=== PATIENT | female | born 1990 | race Caucasian/White ===

== ENCOUNTER 2017-08-24 10:01 | Day surgery (SDC) | payer MEDICAID ==
[~2017-08-24 10:01] MED LIST: Lactated Ringers 1,000 ML IV SCH; Lidocaine 1%/Sod Bicarbonate in NS 8.4% 1 ML Syringe IDERM PRN; Sodium Chloride 0.9% 10 ML Syringe FLUSH PRN
[2017-08-24] MEDS ORDERED: Lidocaine 1% 6 ML ONE (10:19)
[2017-08-24] MEDS ORDERED: ceFAZolin 1 GM Vial ONE (10:19)
[2017-08-24] MEDS ORDERED: Ketorolac 30 MG/ML SDV ONE (10:19)
[2017-08-24] MEDS ORDERED: Dexamethasone 4 MG/ML SDV ONE (10:19)
[2017-08-24] MEDS ORDERED: Propofol 200 MG/20 ML SDV ONE ×2 (10:19→11:54)
[2017-08-24] MEDS ORDERED: Lactated Ringers 1,000 ML ONE (10:19)
[2017-08-24] MEDS ORDERED: Ondansetron 4 MG/2 ML SDV ONE (10:19)
[2017-08-24] MEDS ORDERED: fentaNYL 100 MCG/2 ML SDV ONE ×2 (10:20→11:50)
[2017-08-24] MEDS ORDERED: Midazolam 1 MG/ML 2 ML SDV ONE (10:20)
[2017-08-24] MEDS ORDERED: Lidocaine 1% with EPINEPHrine 1:100,000 20 ML MDV ONE (10:27)
[2017-08-24] MEDS ORDERED: Bupivacaine 0.5%/EPINEPHrine 1:200,000 50 ML MDV ONE (10:27)
--- NOTE | 2017-08-24 10:53 | PCM.PREANE ---
Preanesthetic Assessment - Procedure Proposed Procedure: Open umbililcal hernia repair with mesh - Anesthesia/Transfusion/Family Hx Anesthesia History: Prior Anesthesia Without Reaction Family History of Anesthesia Reaction: No Transfusion History: No Prior Transfusion(s) Intubation History: Unknown - Review of Systems General: No Symptoms Pulmonary: No Symptoms Cardiovascular: No Symptoms Gastrointestinal: No Symptoms Neurological: No Symptoms Other: Reports: None - Physical Assessment NPO Status Date: 08/23/17 NPO Status Time: 22:00 Pulse: 72 O2 Sat by Pulse Oximetry: 98 Respiratory Rate: 16 Blood Pressure: 131/70 Temperature: 36.8 C Height: 1.57 m Weight: 84 kg ASA Class: 2 Mental Status: Alert & Oriented x3 Airway Class: Mallampati = 2 Dentition: Reports: Normal Dentition Thyro-Mental Finger Breadths: 3 Mouth Opening Finger Breadths: 3 ROM/Head Extension: Full Lungs: Clear to Auscultation, Normal Respiratory Effort Cardiovascular: Regular Rate, Regular Rhythm - Allergies Allergies/Adverse Reactions: Allergies Allergy/AdvReac Type Severity Reaction Status Date / Time No Known Allergies Allergy Verified 08/23/17 12:41 - Blood Blood Available: No Product(s) Available: None - Anesthesia Plan Pre-Op Medication Ordered: None - Acknowledgements Anesthesia Type Planned: General Anesthesia Pt an Appropriate Candidate for the Planned Anesthesia: Yes Alternatives and Risks of Anesthesia Discussed w Pt/Guardian: Yes Pt/Guardian Understands and Agrees with Anesthesia Plan: Yes PreAnesthesia Questionnaire HEENT History: Reports: Impaired Vision, Other (See Below) Other HEENT History: wears glasses, history of allergic reaction Cardiovascular History: Reports: Hypertension Respiratory History: Reports: None Gastrointestinal History: Reports: Other (See Below) Other Gastrointestinal History: umbilical hernia Genitourinary History: Reports: None 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 , Other (See Below) Other OB/BYN History: missed menses Musculoskeletal History: Reports: Other (See Below) Other Musculoskeletal History: knee pain Neurological History: Reports: None Psychiatric History: Reports: Other (See Below) Other Psychiatric History: fatigue Endocrine/Metabolic History: Reports: None Hematologic History: Reports: None Immunologic History: Reports: None Oncologic (Cancer) History: Reports: None Dermatologic History: Reports: None - Past Surgical History Head Surgeries/Procedures: Reports: None Cardiovascular Surgical History: Reports: None Respiratory Surgical History: Reports: None GI Surgical History: Reports: None Female Surgical History: Reports: None Male Surgical History: Reports: None Endocrine Surgical History: Reports: None Neurological Surgical History: Reports: None Musculoskeletal Surgical History: Reports: None Oncologic Surgical History: Reports: None Dermatological Surgical History: Reports: None - SUBSTANCE USE Smoking Status *Q: Current Some Day Smoker Tobacco Use Within Last Twelve Months: Cigarettes Second Hand Smoke Exposure: No Recreational Drug Use History: No - HOME MEDS Home Medications: Home Meds . [No Known Home Meds] 08/23/17 [History] - CURRENT (IN HOUSE) MEDS Current Meds: Current Medications Lactated Ringer's (Ringers, Lactated) 1,000 mls @ 125 mls/hr IV ASDIRECTED MARIAM Stop: 08/24/17 23:00 Lidocaine/Sodium Bicarbonate (Buffered Lidocaine 1% In Ns 8.4%) 0.25 ml IDERM ONETIME PRN PRN Reason: Prior to IV Start Stop: 08/24/17 18:00 Sodium Chloride (Saline Flush) 10 ml FLUSH ASDIRECTED PRN PRN Reason: Keep Vein Open Stop: 08/24/17 18:00 Discontinued Medications Bupivacaine HCl/Epinephrine Bitart (Marcaine 0.5%/Epinephrine 1:200,000) Confirm Administered Dose 50 ml .ROUTE .STK-MED ONE Stop: 08/24/17 10:28 Cefazolin Sodium (Ancef) Confirm Administered Dose 2 gm .ROUTE .STK-MED ONE Stop: 08/24/17 10:20 Dexamethasone (Dexamethasone) Confirm Administered Dose 8 mg .ROUTE .STK-MED ONE Stop: 08/24/17 10:20 Fentanyl (Sublimaze) Confirm Administered Dose 100 mcg .ROUTE .STK-MED ONE Stop: 08/24/17 10:21 Lidocaine HCl (Xylocaine-Mpf 1%) Confirm Administered Dose 6 mls @ as directed .ROUTE .STK-MED ONE Stop: 08/24/17 10:20 Lactated Ringer's (Ringers, Lactated) Confirm Administered Dose 1,000 mls @ as directed .ROUTE .STK-MED ONE Stop: 08/24/17 10:20 Ketorolac Tromethamine (Toradol) Confirm Administered Dose 30 mg .ROUTE .STK- MED ONE Stop: 08/24/17 10:20 Lidocaine/Epinephrine (Xylocaine 1% With Epinephrine 1:100,000) Confirm Administered Dose 20 ml .ROUTE .STK-MED ONE Stop: 08/24/17 10:28 Midazolam HCl (Versed 1 Mg/Ml) Confirm Administered Dose 2 mg .ROUTE .STK-MED ONE Stop: 08/24/17 10:21 Ondansetron HCl (Zofran) Confirm Administered Dose 4 mg .ROUTE .STK-MED ONE Stop: 08/24/17 10:20 Propofol (Diprivan 20 Ml) Confirm Administered Dose 200 mg .ROUTE .STK-MED ONE Stop: 08/24/17 10:20
[2017-08-24] MEDS ORDERED: Ketamine 500 mg/10 ML MDV ONE (11:39)
--- NOTE | 2017-08-24 12:15 | PCM.OPNOTE ---
- General Post-Op/Procedure Note Date of Surgery/Procedure: 08/24/17 Operative Procedure(s): Open umbilical hernia repair with primary closure using Ethibond Findings: 1-1/2 cm fascial defect containing herniated omental fat with a mature hernia sac Pre Op Diagnosis: Incarcerated umbilical hernia Post-Op Diagnosis: Same Anesthesia Technique: Local, MAC, Moderate Sedation Primary Surgeon: Ha Boone Pathology: None Complications: None Condition: Good Free Text/Narrative:: After adequate IV sedation and analgesia was obtained the patient's abdomen was prepped and draped sterilely for an open umbilical hernia repair. Local analgesia was given in the periumbilical region. A 15 blade was used to make a curvilinear incision through the skin into the subcutaneous tissues. The hernia sac was dissected away from the umbilical skin. It was then dissected sharply away from surrounding subcutaneous tissues down to the fascia. I opened a thickened sac and excised it. I reduced the omental fat through a 1.5 cm fascial defect. I closed this defect with 3 interrupted 0 Ethibond sutures. The umbilical skin was attached to the midline with a interrupted [id number]-[id number] Vicryl. I closed the subcuticular space with interrupted Vicryl. The skin was closed with 4-0 subcuticular Vicryl. Steri-Strips and gauze were used for the dressing. There were no complications.
--- NOTE | 2017-08-24 12:22 | PCM48HPAN ---
Post Anesthesia Note - EVALUATION WITHIN 48HRS OF ANESTHETIC Vital Signs in Normal Range: Yes Patient Participated in Evaluation: Yes Respiratory Function Stable: Yes Airway Patent: Yes Cardiovascular Function Stable: Yes Hydration Status Stable: Yes Pain Control Satisfactory: Yes Nausea and Vomiting Control Satisfactory: Yes Mental Status Recovered: Yes
[2017-08-24] MEDS ORDERED: Acetaminophen/Codeine 300-30 MG Tab PO PRN (12:43)
== END 2017-08-24 13:45 | disposition home or self-care (01) ==
LOC: JD.SDS 10:01
PROVIDERS: ATTEND Surgery
DX: K42.0 Umbilical hernia with obstruction, without gangrene (principal)
CPT/HCPCS: 49587; 81025; A9270; J0690; J1100; J1885; J2250; J2405; J3010; J7120; J2704

== ENCOUNTER 2018-08-30 21:14 | Emergency (ER) | payer OTHER, MEDICAID ==
[2018-08-30] MEDS ORDERED: Ibuprofen 600 MG Tab PO ONE (21:54)
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
--- NOTE | 2018-08-31 07:17 | CT ---
CT cervical spine Technique: Multiple axial sections were obtained from above C1 inferiorly to the bottom of T2. Reconstructed sagittal and coronal images were reviewed. Comparison: No prior cervical spine imaging. Findings: Vertebral body heights and disc spaces are maintained. Vertebral bodies and posterior arches are intact. No fracture is seen. Slight kyphosis is seen on the reconstructed sagittal views which is most likely positional. No bony central or bony neural foraminal stenosis is seen. Impression: 1. Nothing acute is seen on CT study of the cervical spine. Diagnostic code #1 I agree with preliminary report from [facility], finalized on 08/30/18, 11:16 PM Central Time
== END 2018-08-30 22:40 | disposition home or self-care (01) ==
LOC: JD.ED 21:14
DX: S16.1XXA Strain of muscle, fascia and tendon at neck level, initial encounter (principal); E78.00 Pure hypercholesterolemia, unspecified; I10 Essential (primary) hypertension; Z87.891 Personal history of nicotine dependence; V53.5XXA Driver of pick-up truck or van injured in collision with car, pick-up truck or van in traffic accident, initial encounter
CPT/HCPCS: 72125; 99284; A9270; 99282

== ENCOUNTER 2020-06-30 09:09 | Emergency (ER) | payer SELFPAY ==
--- NOTE | 2020-06-30 10:09 | CT ---
Head CT Technique: Multiple axial sections through the brain were obtained. Comparison: No prior intracranial imaging is available. Reconstructed coronal and sagittal images were obtained. Findings: Ventricles along with basal cisterns and sulci over the convexities are within normal limits. No abnormal parenchymal densities are seen. No evidence of intracranial hemorrhage. No midline shift or mass-effect is seen. Visualized mastoid sinuses and paranasal sinuses show nothing acute. No acute calvarial finding is appreciated. Impression: 1. Nothing acute is appreciated on noncontrast head CT exam. Diagnostic code #1
--- NOTE | 2020-06-30 10:10 | CT ---
Cervical spine Technique: Multiple axial sections were obtained from above C1 inferiorly to the mid T2 vertebral body. Reconstructed sagittal and coronal images were obtained. Comparison: Prior CT cervical spine study of 08/30/18. Findings: Vertebral bodies and posterior arches are intact. No fracture is seen. No bony central or bony neural foraminal stenosis is appreciated. Cervical spine is held in flexion. Impression: 1. Cervical spine is held in flexion. This is most likely due to position. Spasm is also within the differential. 2. No acute bony abnormality is appreciated. Diagnostic code #2
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
== END 2020-06-30 10:47 | disposition home or self-care (01) ==
LOC: JD.ED 09:09
DX: S09.90XA Unspecified injury of head, initial encounter (principal); S16.1XXA Strain of muscle, fascia and tendon at neck level, initial encounter; S00.83XA Contusion of other part of head, initial encounter; E66.9 Obesity, unspecified; I10 Essential (primary) hypertension; W00.0XXA Fall on same level due to ice and snow, initial encounter
CPT/HCPCS: 70450; 70450-26; 72125; 72125-26; 99283-25

== ENCOUNTER 2020-08-30 15:03 | Emergency (ER) | payer SELFPAY ==
[2020-08-30] MEDS ORDERED: cefTRIAXone 250 MG, Lidocaine 1% 0.9 ML IM ONE ×2 (16:15)
--- NOTE | 2020-08-30 16:21 | EDM.PDOC ---
ED HPI GENERAL MEDICAL PROBLEM - General Chief Complaint: [employer] Problem Stated Complaint: FB IN VAGINA NEEDS CHECKED Time Seen by Provider: 08/30/20 15:17 Source of Information: Reports: Patient, RN Notes Reviewed History Limitations: Reports: No Limitations - History of Present Illness INITIAL COMMENTS - FREE TEXT/NARRATIVE: Patient is a 30-year-old female who presents to the ED for evaluation of a retained foreign body in her vagina. Patient notes that she has a history of PCOS, and does get regular menses, and been dealing with this last menses for about 2 weeks she has been getting some increased blood clots, that is becoming concerning for her. She states that roughly 4 days ago on Tuesday, she had a tampon in and she thought she had taken it out, and today she noticed an odor and some vaginal discharge she did not have prior to these last few days. She has been utilizing tampons since then, took out her tampon for today's purposes, and then discovered that she had that second retained tampon in from last Tuesday. She notes that since then, she had some pelvic discomfort, and tenderness suprapubically. She is not had any fevers or chills, nausea/v omiting/diarrhea. 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 She did not take any pain meds for this at this time. Pelvic Pain Score (Numeric/FACES): 7 - Related Data Allergies Allergy/AdvReac Type Severity Reaction Status Date / Time No Known Allergies Allergy Verified 08/30/20 15:31 Home Meds: Home Meds Hydrocodone/Acetaminophen [Hydrocodone-Acetamin 5-325 mg] 1 - 2 each PO Q6HR PRN #10 tablet 06/30/20 [Rx] Doxycycline [Vibramycin] 100 mg PO BID 14 Days #28 tab 08/30/20 [Rx] medroxyPROGESTERone [Provera] 10 mg PO DAILY #10 tab 08/30/20 [Rx] Past Medical History HEENT History: Reports: Impaired Vision Other HEENT History: wears glasses Cardiovascular History: Reports: Hypertension Gastrointestinal History: Reports: Other (See Below) Other Gastrointestinal History: umbilical hernia [employer] History: Reports: Polycystic Ovaries, , Spontaneous Other [employer] WORKER History: missed menses Musculoskeletal History: Reports: Other (See Below) Other Musculoskeletal History: knee pain Endocrine/Metabolic History: Reports: Obesity/BMI 30+ - Past Surgical History GI Surgical History: Reports: Hernia, Abdominal Female Surgical History: Reports: D&C Social & Family History - Family History Family Medical History: No Pertinent Family History Cardiac: Reports: High Cholesterol, Hypertension Endocrine/Metabolic: Reports: Diabetes, type II, Hypothyroidism - Tobacco Use Tobacco Use Status *Q: Never Tobacco User - Caffeine Use Caffeine Use: Reports: None - Recreational Drug Use Recreational Drug Use: No - Living Situation & Occupation Living situation: Reports: , with Family (2 daughters) Occupation: Employed ([employer]) ED ROS GENERAL - Review of Systems Review Of Systems: Comprehensive ROS is negative, except as noted in HPI. ED EXAM, RENAL/ - Physical Exam Exam: See Below Exam Limited By: No Limitations General Appearance: Alert, WD/WN, No Apparent Distress Respiratory/Chest: No Respiratory Distress, Lungs Clear, Normal Breath Sounds, No Accessory Muscle Use, Chest Non-Tender Cardiovascular: Normal Peripheral Pulses, Regular Rate, Rhythm, No Edema (Female) Exam: Normal External Exam, Normal Speculum Exam, Cervix Motion Tenderness, Uterine Tenderness (midline suprapubic tenderness on manual exam), Vaginal Bleeding (normal looking blood in vaginal vault with the appearance of mentstrual fluids) Extremities: Normal Inspection, Normal Capillary Refill Neurological: Alert, Oriented, Normal Cognition, No Motor/Sensory Deficits Psychiatric: Normal Affect, Normal Mood Skin Exam: Warm, Dry, Intact, Normal Color, No Rash Course - Vital Signs Last Recorded V/S: Last Vital Signs Temp 98.8 F 08/30/20 15:28 Pulse 83 08/30/20 15:28 Resp 18 08/30/20 15:28 BP 126/82 08/30/20 15:28 Pulse Ox 97 08/30/20 15:28 - Orders/Labs/Meds Orders: Active Orders 24 hr Category Date Time Status cefTRIAXone 250 MG,Lidocaine 1% 0.9 ML IM Onetime Med 08/30/20 16:15 Ordered cefTRIAXone [Rocephin] 250 mg Lidocaine 1% [Xylocaine-MPF 1%] 0.9 ml IM ONETIME - Re-Assessments/Exams Free Text/Narrative Re-Assessment/Exam: 08/30/20 16:22 Patient presents to the ED for evaluation of a retained foreign body in her vagina and a foul smell with tenderness. I did do a pelvic examination, I could not find any retained material that would suggest there was anything left. Patient did have some cervical motion tenderness along with some uterine/suprapubic tenderness, we will go ahead and give her a dose of IM Rocephin, get her started on oral doxycycline and give her Provera for her menses that she has had for 2 weeks for dysfunctional uterine bleeding. Have her go ahead and follow-up with an [employer] WORKER of choice, she states that she is going to try a different [employer] as she did not think her and Dr. Spicer "clicked". Departure - Departure Time of Disposition: 16:23 Disposition: Home, Self-Care 01 Condition: Good Clinical Impression: Dysfunctional uterine bleeding, PID (acute pelvic inflammatory disease) - Discharge Information *PRESCRIPTION DRUG MONITORING PROGRAM REVIEWED*: No *COPY OF PRESCRIPTION DRUG MONITORING REPORT IN PATIENT VESNA: No Instructions: Vaginal Foreign Body, [id number], Abnormal Uterine Bleeding, [id number] Referrals: PCP,None [Primary Care Provider] - Additional Instructions: You were seen in this ER today for your dysfunctional uterine bleeding and retained foreign body with pelvic discomfort. A pelvic exam was done, there was no retained foreign body at today's visit, you did have some tenderness which is suggestive of the possibility of the start of an early infection, you were given a 1 dose of IM antibiotic, Rocephin, you will be started on oral antibiotics, doxycycline 1 tab 2 times a day for the next 14 days and Provera for your dysfunctional uterine bleeding. This will be 1 tab daily for the next 10 days, this is to theoretically reset your menstrual cycle, to help stop the prolonged uterine bleeding that you are experiencing. You may use 600 mg ibuprofen every 6 hours as needed for further pain or pelvic discomfort. Do not exceed 3200 mg ibuprofen in a 24-hour time span. You may also use a hot pad to the abdomen, as this sometimes can help relieve some pain. Recommend you find an [employer]K [employer] WORKER, please call our clinic at [phone], we do have 2 other [employer]ER's that you could set up care with, Dr. Zamorano, or Dr. Simons, or there are 2 female [employer] HOU[employer] WORKER's at [facility] Dr. Glover or Dr. Dillon. The number for the [facility] is [phone]. Please return to the ER at any time if symptoms change or worsen. Sepsis Event Note (ED) - Evaluation Sepsis Screening Result: No Definite Risk - Focused Exam Vital Signs: Vital Signs Temp Pulse Resp BP Pulse Ox 08/30/20 15:28 98.8 F 83 18 126/82 97 - My Orders Last 24 Hours: My Active Orders 08/30/20 16:15 cefTRIAXone 250 MG,Lidocaine 1% 0.9 ML IM Onetime cefTRIAXone [Rocephin] 250 mg Lidocaine 1% [Xylocaine-MPF 1%] 0.9 ml IM ONETIME - Assessment/Plan Last 24 Hours: My Active Orders 08/30/20 16:15 cefTRIAXone 250 MG,Lidocaine 1% 0.9 ML IM Onetime cefTRIAXone [Rocephin] 250 mg Lidocaine 1% [Xylocaine-MPF 1%] 0.9 ml IM ONETIME
== END 2020-08-30 16:40 | disposition home or self-care (01) ==
LOC: JD.ED 15:03
DX: N93.8 Other specified abnormal uterine and vaginal bleeding (principal); N73.9 Female pelvic inflammatory disease, unspecified; I10 Essential (primary) hypertension; E66.9 Obesity, unspecified; Z68.35 Body mass index [BMI] 35.0-35.9, adult
CPT/HCPCS: 96372; 99283; J0696; 99284

== ENCOUNTER 2023-11-29 20:49 | Emergency (ER) | payer SELFPAY ==
[2023-11-29 23:52] LABS: BASOPHILS PERCENT AUTO 0.3 % (0.0-1.0); EOSINOPHILS ABSOLUTE AUTO 0.1 K/mm3 (0.0-0.4); EOSINOPHILS PERCENT AUTO 1.2 % (0.0-6.0); HEMATOCRIT 39.1 % (37.0-47.0); HEMOGLOBIN 13.3 gm/dl (12.0-16.0); IMMATURE GRAN ABSOLUTE AUTO 0.04 K/mm3 (0.00-0.05); IMMATURE GRAN PERCENT AUTO 0.4 % (0.0-0.4); LYMPHOCYTES ABSOLUTE AUTO 3.4 K/mm3 (1.0-4.8); LYMPHOCYTES PERCENT AUTO 35.2 % (24.0-44.0); MEAN CORPUSCULAR VOLUME 85.2 fl (83.0-99.0); MONOCYTES ABSOLUTE AUTO 0.6 K/mm3 (0.0-0.8); NEUTROPHILS ABSOLUTE AUTO 5.5 K/mm3 (1.8-7.7); NEUTROPHILS PERCENT AUTO 56.9 % (41.0-71.0); PLATELET COUNT,PLT 250 K/mm3 (150-400); RED BLOOD CELL COUNT 4.59 M/mm3 (4.10-5.30); WHITE BLOOD CELL COUNT,WBC 9.76 K/mm3 (3.9-11.3)
[2023-11-30 00:05] LABS: APPEARANCE,URINE CLEAR (Clear); BILIRUBIN,URINE NEGATIVE (Negative); COLOR,URINE YELLOW (Yellow); GLUCOSE,URINE NEGATIVE (Negative); KETONES,URINE NEGATIVE (Negative); LEUKOCYTE ESTERASE,URINE NEGATIVE (Negative); NITRITE,URINE NEGATIVE (Negative); OCCULT BLOOD,URINE NEGATIVE (Negative); PROTEIN,URINE NEGATIVE (Negative); UROBILINOGEN,URINE 0.2 (0.2-1.0)
[2023-11-30 00:21] LABS: A/G RATIO 0.9 (1-2); ALBUMIN 3.5 g/dl (3.4-5.0); ANION GAP 13.7 (5-15); BILIRUBIN TOTAL 0.4 mg/dL (0.2-1.0); BUN/CREATININE RATIO 6.4 (14-18); CREATININE 1.1 mg/dL (0.55-1.02); EST CRCL DRUG DOSING (CG) 58.07 mL/min; POTASSIUM,K 3.7 mEq/L (3.5-5.1); PROTEIN TOTAL,TP 7.6 g/dl (6.4-8.2)
== END 2023-11-30 03:07 | disposition home or self-care (01) ==
LOC: JD.ED 20:49
DX: M94.0 Chondrocostal junction syndrome [Tietze] (principal); R10.11 Right upper quadrant pain; I10 Essential (primary) hypertension; Z79.899 Other long term (current) drug therapy
CPT/HCPCS: 36415; 71101-26-RT; 71101-RT; 80053; 81003; 81025; 83690; 85025; 99284